=== PATIENT | male | born 1985 | race Caucasian/White ===

== ENCOUNTER 2022-09-15 10:10 | Emergency (ER) | payer SELFPAY ==
[2022-09-15] MEDS ORDERED: Ibuprofen 400 MG Tab PO STA (11:01)
[2022-09-15] MEDS ORDERED: Acetaminophen 325 MG Tab PO ONE (11:01)
[2022-09-15] MEDS ORDERED: Ampicillin/Sulbactam Na 3 GM in Sodium Chloride 0.9% 100 ML IV STA (11:01)
== END 2022-09-15 12:51 | disposition home or self-care (01) ==
LOC: MW.ED 10:10
DX: K04.7 Periapical abscess without sinus (principal); I10 Essential (primary) hypertension; F17.210 Nicotine dependence, cigarettes, uncomplicated
CPT/HCPCS: 96365; 99283; A9270; J0295; J3490